=== PATIENT | male | born 1985 | race Caucasian/White ===

== ENCOUNTER 2016-10-31 23:28 | Emergency (ER) | payer SELFPAY ==
[~2016-10-31] VITALS: Ht 193 cm; Wt 83.1 kg
[2016-11-01] MEDS ORDERED: BACTRIM,SEPT1 TABLET PO (01:01)
[2016-11-01 01:07] VITALS: BP 128/90
== END 2016-11-01 01:17 | disposition home or self-care (01) ==
LOC: EXP 23:28 → EME 23:28
DX: L03.116 Cellulitis of left lower limb (principal); F17.200 Nicotine dependence, unspecified, uncomplicated
CPT/HCPCS: 99281; 99284